=== PATIENT | female | born 1990 | race Caucasian/White ===

== ENCOUNTER 2021-09-19 22:38 | Inpatient (IN) | payer OTHER ==
[2021-09-19 22:48] VITALS: BMI 23.0
[2021-09-19] MEDS ORDERED: MAG HYDROX/AL HYDROX/SIMETH 30 ML UNIT-DOSE CUP PO PRN (23:19)
[2021-09-19] MEDS ORDERED: IBUPROFEN 400 MG TABLET (FP) PO PRN (23:19)
[2021-09-19] MEDS ORDERED: MAGNESIUM HYDROX 2400MG/30ML ORAL SUSPENSION 30 ML CUP PO PRN (23:19)
[2021-09-19] MEDS ORDERED: MAGNESIUM CITRATE 300 ML BOTTLE PO PRN (23:19)
[2021-09-19] MEDS ORDERED: BISMUTH SUBSALICYLATE 524 MG/30 ML PO PRN (23:19)
[2021-09-19] MEDS ORDERED: ONDANSETRON *ODT* 4 MG TABLET SL PRN (23:19)
[2021-09-19] MEDS ORDERED: LOPERAMIDE HCL 2 MG CAPSULE PO PRN (23:19)
[2021-09-19] MEDS ORDERED: P-EPHED 60MG/TRIPROLIDI 2.5MG TABLET PO PRN (23:19)
[2021-09-19] MEDS ORDERED: DICYCLOMINE HCL 10 MG CAPSULE PO PRN (23:19)
[2021-09-19] MEDS ORDERED: BENZOCAINE/MENTHOL (CHLORASEPTIC ) LOZENGE MM PRN (23:19)
[2021-09-19] MEDS ORDERED: ACETAMINOPHEN 325 MG TABLET (FP) PO PRN (23:19)
[2021-09-20] MEDS: MELATONIN 5 MG TABLETS PO PRN ×2 (01:07→22:22)
[2021-09-20] MEDS: diazePAM 5 MG TABLET PO PRN ×2 (01:07→13:46)
[2021-09-20] MEDS: METHOCARBAMOL 500 MG TABLET PO PRN ×2 (01:08→22:25)
[2021-09-20] MEDS: ACETAMINOPHEN 325 MG TABLET (FP) PO PRN ×2 (01:08→17:47)
[2021-09-20] MEDS ORDERED: methaDONE HCL 10 MG TABLET (FOR DETOX USE ONLY) PO ONE (09:12)
[2021-09-20] MEDS ORDERED: cloNIDine HCL 0.1 MG TABLET PO PRN (09:12)
[2021-09-20 09:48] LABS: HEMATOCRIT 35.7 % (32.4-45.2); MCH 31.5 pg (25.7-33.7); MCHC 33.6 g/dl (32.0-36.0); MEAN CELL VOLUME 93.7 fl (80-96); MEAN PLT VOLUME 9.8 fl (7.5-11.1); PLATELET COUNT 242 10^3/uL (134-434); RBC 3.81 M/mm3 (3.60-5.2); RDW 12.1 % (11.6-15.6); WHITE BLOOD COUNT 5.8 K/mm3 (4.0-10.0)
[2021-09-20 10:07] LABS: BLOOD UREA NITROGEN 13.8 mg/dL (7-18)
[2021-09-20 10:08] LABS: ALBUMIN 3.4 g/dl (3.4-5.0)
[2021-09-20 10:09] LABS: CALCIUM 9.1 mg/dL (8.5-10.1)
[2021-09-20 10:11] LABS: CREATININE 0.6 mg/dL (0.55-1.3)
[2021-09-20 10:12] LABS: BILIRUBIN,TOTAL 0.8 mg/dL (0.2-1)
[2021-09-20] MEDS: PRENATAL VITAMINS W/ FOLIC ACID TABLET (FP) PO SCH (10:15)
[2021-09-20] MEDS: diazePAM 5 MG TABLET PO SCH ×3 (10:17→22:22)
[2021-09-20 10:20] LABS: TOT PROT 6.2 g/dl (6.4-8.2)
[2021-09-20] MEDS: hydrOXYzine PAMOATE 25 MG CAPSULE (FP) PO PRN ×2 (13:48→22:22)
[2021-09-20] MEDS: NICOTINE 10 MG CARTRIDGE (INHALER) IH PRN ×2 (15:38→22:29)
[2021-09-20] MEDS ORDERED: THIAMINE HCL 100 MG TABLET (FP) PO SCH (22:00)
[2021-09-21 06:06] LABS: SARS-CoV-2 NAA Not Detected (Not Detected)
[2021-09-21] MEDS: diazePAM 5 MG TABLET PO SCH ×3 (07:18→17:38)
[2021-09-21] MEDS ORDERED: methaDONE HCL 10 MG TABLET (FOR DETOX USE ONLY) ONE (08:55)
[2021-09-21] MEDS: PRENATAL VITAMINS W/ FOLIC ACID TABLET (FP) PO SCH (10:43)
[2021-09-21] MEDS: diazePAM 5 MG TABLET PO PRN (15:28)
[2021-09-21] MEDS: NICOTINE 10 MG CARTRIDGE (INHALER) IH PRN (15:30)
[2021-09-21 21:47] VITALS: BP 104/69; PULSE 72; TEMP 96.6
[2021-09-22] MEDS ORDERED: diazePAM 5 MG TABLET PO SCH (06:00)
[2021-09-22] MEDS ORDERED: methaDONE HCL 10 MG TABLET (FOR DETOX USE ONLY) PO ONE (10:00)
[2021-09-23] MEDS ORDERED: diazePAM 5 MG TABLET PO SCH (06:00)
[2021-09-24] MEDS ORDERED: diazePAM 5 MG TABLET PO ONE (06:00)
[2021-09-24] MEDS ORDERED: methaDONE HCL 10 MG TABLET (FOR DETOX USE ONLY) PO ONE (10:00)
== END 2021-09-21 21:58 | disposition left against medical advice (07) | DRG 770 ==
LOC: YASAS 22:38 → Y3N 23:38
PROVIDERS: ADMIT Allergy & Immunology; ATTEND Allergy & Immunology
PROC: HZ2ZZZZ Detoxification Services for Substance Abuse Treatment (ICD-10-PCS; principal; 2021-09-19)
DX: F11.23 Opioid dependence with withdrawal (principal); F13.20 Sedative, hypnotic or anxiolytic dependence, uncomplicated; F10.20 Alcohol dependence, uncomplicated; F17.290 Nicotine dependence, other tobacco product, uncomplicated
CPT/HCPCS: 36415; 80053; 81025; 85027; 86780; 87811; C9803-CS; U0003; U0005